=== PATIENT | male | born 1955 | race Caucasian/White ===

== ENCOUNTER 2021-08-07 13:45 | Emergency (ER) | payer OTHER, SELFPAY ==
--- NOTE | ~2021-08-07 | XR_ITS ---
EXAMINATION: XR shoulder RT min 2V INDICATION: Right shoulder pain TECHNIQUE: Four views of the right shoulder are submitted. COMPARISON: None FINDINGS: Normal alignment. No fracture. There is moderate osteoarthritis of the glenohumeral and acr omioclavicular joints. Soft tissues are unremarkable. IMPRESSION: 1. Moderate osteoarthritis without acute osseous finding. Reviewed, dictated and finalized at location A. [employer]
[2021-08-07 14:07] VITALS: BP 185/119; PULSE 74; RESP 20; TEMP 36.8; O2SAT 97
--- NOTE | 2021-08-07 14:10 | ED.UPPEXIN ---
HPI - Extremity Injury (Upper) General Chief Complaint: Extremity Injury, Upper Stated Complaint: shoulder injury right side Time Seen by Provider: 08/07/21 14:10 Source: patient Mode of arrival: ambulatory History of Present Illness HPI narrative: 66-year-old male with no significant past medical history presents with -- right shoulder pain. Decreased range of motion of right shoulder. One of his colleagues bumped into his right shoulder 5 days ago. MD complaint: injury to: right and shoulder Onset (ago): day(s) ( Five days ago) Other Extremity Injury: Right: shoulder Handedness: right Place: work Severity: moderate Relieving factors: immobilization Exacerbating factors: movement of extremity Context: direct blow Associated symptoms: denies other symptoms Related Data Allergies Allergy/AdvReac Type Severity Reaction Status Date / Time No Known Allergies Allergy Verified 08/07/21 14:13 Review of Systems Review of Systems: All systems reviewed & are unremarkable except as noted in HPI and below Constitutional: Constitutional: Reports as per HPI and Reports no additional constitutional complaints Eyes: Eyes: Reports as per HPI and Reports no additional eye complaints ENT: Reports system reviewed and no additional complaints, except as documented Cardiovascular: Cardiovascular: Reports as per HPI and Reports no additional cardiovascular complaints Respiratory: Respiratory: Reports as per HPI and Reports no additional respiratory complaints Gastrointestinal: Gastrointestinal: Reports as per HPI and Reports no additional gastrointestinal complaints Genitourinary: Genitourinary: Reports no additional male genitourinary complaints Musculoskeletal: Musculoskeletal: Reports other ( right shoulder pain /decreased range motion) Integumentary/Breasts: Skin/Breast: Reports system reviewed and no additional complaints, except as docu Neurologic: Reports system reviewed and no additional complaints, except as documented Psychiatric: Psychiatric: Reports no additional psychiatric complaints and Reports as per HPI Endocrine: Endocrine: Reports no additional endocrine complaints and Reports as per HPI Hematologic/Lymphatic: Hematologic/Lymphatic: Reports no additional hematologic/lymphatic complaints and Reports as per HPI Allergic/Immunologic: Allergic/Immunologic: Reports no additional allergic/immunologic complaints and Reports as per HPI Exam Const: General: cooperative, healthy appearing and comfortable Other: hypertensive on presentation with a blood pressure of 185/119. HENMT: Head: normal to inspection Ears: hearing grossly normal bilaterally and external ears normal General nose exam: Normal external nose present and Normal nares present Face and sinus: normal facial exam Mouth: Yes Normal oral and palatal mucosa present Teeth and gingiva: dentition normal and gingiva normal Throat: posterior oropharynx normal Eyes: General: appearance normal, both eyes and all related structures Neck: Neck: normal visual inspection and full ROM Chest: Chest palpation & inspection: normal inspection of the chest Resp: Effort & Inspection: normal respiratory effort Auscultation: clear to auscultation bilaterally Cardio: Jugular venous distension: no JVD GI: Inspection: normal to inspection : General: Yes bimanual renal exam normal bilaterally and Yes no CVA tenderness Back/Spine/Pelvis: Back: no CVA tenderness Skin: General skin exam: normal color and no rashes or lesions noted Neuro: General: oriented to person, oriented to place, oriented to time, patient oriented x3 and gait normal Cranial nerves: Yes CN's II-XII intact bilaterally Speech: normal speech Sensory Exam: normal sensation Extrem: General: normal to inspection and full ROM Right upper extremity: normal to inspection and full ROM ( decreased ROM right shoulder. Tenderness right shoulder) Right lower extremity: normal to inspection Left lower extr
[2021-08-07] MEDS: KETOROLAC 30 MG/ML VIAL (*BKC) IM (14:27)
[2021-08-07] MEDS: HYDROcodone/acetaminophen (*CRX) 5-325 MG TABLET 1 TAB PO (14:48)
--- NOTE | 2021-08-07 15:03 | PC.NURSE ---
1500 pt had elevated b/p 198/110 pt refused b/p meds states will follow up with his doctor this week
[2021-08-07 15:04] VITALS: BP 198/110; PULSE 66; RESP 20; TEMP 36.9; O2SAT 98
== END 2021-08-07 15:08 | disposition home or self-care (01) ==
PROVIDERS: Emergency Provider Internal Medicine Critical Care Medicine
DX: M13.811 Other specified arthritis, right shoulder (principal); M25.511 Pain in right shoulder
CPT/HCPCS: 73030; 96372; 99283; A4565; A9270; J1885

== ENCOUNTER 2021-09-05 12:47 | Emergency (ER) | payer OTHER, SELFPAY ==
[2021-09-05] VITALS (18 sets, daily range): BP systolic 179–222; BP diastolic 130–143; PULSE 92–110; RESP 9–23; TEMP 37.3; O2SAT 92–99
--- NOTE | ~2021-09-05 | XR_ITS ---
EXAMINATION: XR chest 2V DATE: 09/05/2021 13:41 INDICATION: Right-sided chest pain TECHNIQUE: PA and lateral views of the chest are obtained. COMPARISON: None available FINDINGS: The lungs are free of acute opacities. There is no pleural effusion or pneumothorax. The ca rdiomediastinal silhouette is normal. There is moderate thoracic spondylosis. IMPRESSION: 1. No acute cardiopulmonary abnormality. Reviewed, dictated and finalized at location B.
--- NOTE | 2021-09-05 12:49 | ECG_ITS ---
Measurements Intervals [place] Rate: 110 P: 34 TX: 135 QRS: 147 QRSD: 140 T: 39 QT: 356 QTc: 483 Interpretive Statements SINUS TACHYCARDIA RIGHT BUNDLE BRANCH BLOCK [120+ ms QRS DURATION, UPRIGHT V1, 40+ ms S IN I/aVL/V4/V5/V6] LEFT POSTERIOR FASCICULAR BLOCK [QRS AXIS > 109, INFERIOR Q] ABNORMAL ECG NO PREVIOUS ECG AVAILABLE FOR COMPARISON Electronically Signed On 09-05-2021 16:03:10 CDT by Matias Benitez M.D.
[2021-09-05 13:13] LABS: Basophils Percent Auto 0.3 % (0.2-1.2); Eosinophils Absolute Auto 0.1 K/mm3 (0-0.3); Eosinophils Percent Auto 1.8 % (0-4.4); Hematocrit 48.1 % (42.0-52.0); Hemoglobin 16.4 g/dL (14.0-18.0); Immature Granulocyte Absolute 0.01 K/mm3 (0.00-0.031); Immature Granulocyte Percent A 0.1 % (0-0.5); Lymphocytes Absolute Auto 2.03 K/mm3 (0.9-3.2); Mean Corpuscular HGB Conc 34.1 g/dl (32-36); Mean Corpuscular Hemoglobin 33.2 pg (26-34); Mean Corpuscular Volume 97.4 fl (80-100); Mean Platelet Volume 9.5 fl (7.4-10.4); Monocytes Absolute Auto 0.7 K/mm3 (0.1-0.6); Monocytes Percent Auto 10.1 % (2.6-8.5); Neutrophils Absolute Auto 4.3 K/mm3 (1.3-6.7); Neutrophils Percent Auto 59.7 % (45.5-73.1); Platelet Count Result 280 k/mm3 (150-375); Red Blood Count 4.94 M/mm3 (4.6-6.20); Red Cell Distribution Width 13.2 % (11.5-14.5); White Blood Count 7.3 K/mm3 (4.5-10.0)
[2021-09-05 13:26] LABS: Alanine Aminotransferase 47 U/L (4-50); Albumin Level 4.7 g/dL (3.5-5.1); Alkaline Phosphatase 87 U/L (38-126); Anion Gap 7 mmol/L (8-16); Aspartate Amino Transferase 46 U/L (17-59); Bilirubin,Total 0.6 mg/dL (0.2-1.3); Blood Urea Nitrogen 13 mg/dL (9-20); Calcium 8.9 mg/dL (8.4-10.2); Carbon Dioxide 24 mmol/L (22-30); Chloride 104 mmol/L (98-107); Estimated CRCL calculation 75 ml/min; Estimated Glomerular Filt Rate > 60; Glucose 117 mg/dL (65-110); Lipase 93 U/L (23-300); Sodium 135 mmol/L (137-145)
[2021-09-05 13:27] LABS: Partial Thromboplastin Time 25.8 SECONDS (22.3-36.8)
[2021-09-05 13:37] LABS: Troponin I < 0.012 ng/mL (0.000-0.034)
--- NOTE | 2021-09-05 14:25 | PC.NURSE ---
ERP advised of high blood pressure readings.
--- NOTE | 2021-09-05 14:39 | ED.GENADULT ---
HPI - General Adult General Chief complaint: Chest Pain Stated complaint: chest pain Time Seen by Provider: 09/05/21 13:25 History of Present Illness HPI narrative: Patient is a 66-year-old male who presents ER for evaluation of his hypertension. Patient reports he was seen in [place] ER recently after suffering a shoulder injury after helping a woman curb and then she slipped on the ice. He has been doing well since then however was found his blood pressure was markedly elevated. His family has been anxious and trying to make sure he is okay. He has a appointment scheduled on 09/09/2021 with his PCP in [place]. Reports he has not been on antihypertensives with the exception many years ago when he had an upset stomach and stopped taking them. He is unsure what the name of them well. Patient endorses some shortness of breath when he walks upstairs to help his mother but otherwise has no chest pain, neurologic symptoms, or other complaint. Related Data Allergies Allergy/AdvReac Type Severity Reaction Status Date / Time No Known Allergies Allergy Verified 09/05/21 13:00 Review of Systems Review of Systems: All systems reviewed & are unremarkable except as noted in HPI and below Constitutional: Constitutional: Denies chills, Denies fever(s) and Denies weakness Eyes: Eyes: Denies change in vision ENT: Denies nasal congestion and Denies sore throat Cardiovascular: Cardiovascular: Denies chest pain, Denies rapid heart rate and Denies radiating jaw, neck or arm pain Respiratory: Respiratory: Denies cough, Reports dyspnea (When walking up stairs.) and Denies wheezing Musculoskeletal: Musculoskeletal: Denies back pain and Denies arthralgias Neurologic: Denies headache(s), Denies focal weakness and Denies numbness PMFSH Past Medical History Medical History (Updated 09/05/21 @ 14:47 by Evans Lofton MD) Hypertension Surgical History Surgical History (Updated 09/05/21 @ 14:47 by Evans Lofton MD) No pertinent past surgical history Social History Social History (Updated 09/05/21 @ 14:47 by Evans Lofton MD) Smoking status: Smoker, status unknown Exam Narrative: GENERAL: Well-appearing, well-nourished, and in no acute distress. HEAD: Normocephalic, atraumatic. EYES: PERRL and EOMI. CHEST: Clear to auscultation. No respiratory distress. HEART: Regular rate and rhythm. Normal peripheral pulses. ABDOMEN: Soft, nontender, nondistended. EXTREMITIES: Normal range of motion. No edema. SKIN: Warm, dry, no rash. NEURO: Alert and oriented x3. PSYCH: Normal mood and affect. Course Course Emergency Course: Discussed case with physician assistant teacher primary Maddy patient's primary care office. Patient has not been seen there previously and had one canceled appointment but they are anticipating him for the which she has a schedule appointment for. They would like him started on atenolol 50 mg. We will give 1 week supply and then may adjust from there. Patient is aware of treatment plan. 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 Vital Signs Vital signs: Vital Signs Temperature 99.1 F 09/05/21 12:54 Pulse Rate 107 H 09/05/21 12:54 Respiratory Rate 23 H 09/05/21 12:54 Blood Pressure 220/143 H 09/05/21 12:54 Pulse Oximetry 98 09/05/21 12:54 Temperature 99.1 F 09/05/21 12:54 Pulse Rate 110 H 09/05/21 12:58 Respiratory Rate 23 H 09/05/21 12:54 Blood Pressure 220/143 H 09/05/21 12:54 Pulse Oximetry 98 09/05/21 12:54 Medical Decision Making Vital Signs Vital Signs: Vital Signs Temperature 99.1 F 09/05/21 12:54 Pulse Rate 107 H 09/05/21 12:54 Respiratory Rate 23 H 09/05/21 12:54 Blood Pressure 220/143 H 09/05/21 12:54 Pulse Oximetry 98 09/05/21 12:54 Temperature 99.1 F 09/05/21 12:54 Pulse Rate 110 H 09/05/21 12:58 Respiratory Rate 23 H 09/05/21 12:54 Blood Pres
== END 2021-09-05 15:05 | disposition home or self-care (01) ==
PROVIDERS: Emergency Provider Emergency Medicine; PCP Physician Assistant
DX: I10 Essential (primary) hypertension (principal); R00.0 Tachycardia, unspecified; I45.10 Unspecified right bundle-branch block
CPT/HCPCS: 36415; 71046; 80053; 83690; 84484; 85025; 85610; 85730; 93005; 99284

== ENCOUNTER 2021-09-23 11:40 | Emergency (ER) | payer OTHER, SELFPAY ==
[2021-09-23 11:58] VITALS: BP 167/123; PULSE 71; RESP 16; TEMP 36.3; O2SAT 100
[2021-09-23 12:46] LABS: Basophils Absolute Auto 0.02 K/mm3 (0.00-0.10); Basophils Percent Auto 0.3 % (0.0-1.0); Eosinophils Absolute Auto 0.16 K/mm3 (0.02-0.50); Eosinophils Percent Auto 2.5 % (1.0-6.0); Hematocrit 45.8 % (40.0-54.0); Immature Granulocyte Absolute 0.02 K/mm3 (0.00-0.00); Immature Granulocyte Percent A 0.3 % (0.0-0.0); Lymphocytes Absolute Auto 2.17 K/mm3 (1.10-4.50); Lymphocytes Percent Auto 33.4 % (18.0-42.0); Mean Corpuscular HGB Conc 32.8 g/dL (32.0-36.0); Mean Corpuscular Hemoglobin 32.8 pg (27.0-31.0); Mean Platelet Volume 9.9 fl (8.7-11.0); Monocytes Absolute Auto 0.72 K/mm3 (0.10-0.90); Monocytes Percent Auto 11.1 % (2.0-11.0); Neutrophils Absolute Auto 3.4 K/mm3 (1.7-7.2); Neutrophils Percent Auto 52.4 % (50.0-70.0); Platelet Count Result 247 K/mm3 (150-420); Red Blood Count 4.58 M/mm3 (4.70-6.10); Red Cell Distribution Width 13.5 % (11.6-14.4); White Blood Count 6.5 K/mm3 (4.8-10.8)
[2021-09-23] MEDS: cloNIDine HCL 0.2 MG TABLET PO (12:50)
[2021-09-23 13:01] LABS: Alanine Aminotransferase 49 U/L (16-63); Alkaline Phosphatase 67 U/L (46-116); Anion Gap 8 mmol/L (8-16); Aspartate Amino Transferase 35 U/L (15-37); Bilirubin,Total 0.5 mg/dL (0.00-1.00); Blood Urea Nitrogen 13 mg/dL (7-18); Calcium 8.7 mg/dL (8.5-10.1); Carbon Dioxide 27 mmol/L (21-32); Chloride 101 mmol/L (98-108); Estimated Glomerular Filt Rate > 60; Glucose 98 mg/dL (70-99); Osmolality Calculated 282 mOsm/kg (285-295); Potassium 4.2 mmol/L (3.5-5.1); Sodium 136 mmol/L (136-145); Total Protein 7.9 g/dL (6.4-8.2)
--- NOTE | 2021-09-23 13:29 | ED.GENADULT ---
HPI - General Adult General Chief complaint: Unspecified Stated complaint: HIGH BLOOD PRESSURE Time Seen by Provider: 09/23/21 11:42 Source: patient, family, RN notes reviewed and old records reviewed Mode of arrival: ambulatory Limitations: no limitations History of Present Illness complaint: elevated BP, asymptomatic. Onset (ago): day(s) (1) Pain Consistency: other (pain-free) Relieving factors: medication Exacerbating factors: none Treatments prior to arrival: none Related Data Home Medications Medication Instructions Recorded Confirmed lisinopril 20 mg PO DAILY 09/23/21 09/23/21 Allergies Allergy/AdvReac Type Severity Reaction Status Date / Time No Known Allergies Allergy Verified 09/23/21 12:09 Review of Systems Review of Systems: All systems reviewed & are unremarkable except as noted in HPI and below PMFSH Past Medical History Medical History (Updated 09/23/21 @ 13:47 by Arabella Glover MD) Hypertension Hypertension Surgical History Surgical History (Updated 09/05/21 @ 14:47 by Evans Lofton MD) No pertinent past surgical history Social History Social History (Updated 09/05/21 @ 14:47 by Evans Lofton MD) Smoking status: Smoker, status unknown Exam Const: General: cooperative, healthy appearing and no acute distress Nutritional Appearance: well nourished Orientation/consciousness: oriented to person and patient oriented x3 Limitations: no limitations HENMT: Head: normal to inspection, normocephalic and atraumatic Ears: hearing grossly normal bilaterally, external ears normal and EAC's normal General nose exam: Normal external nose present and Normal nares present Face and sinus: normal facial exam Mouth: Yes Normal oral and palatal mucosa present, Yes lip normal, Yes oropharynx normal and Yes moist mucous membranes Throat: posterior oropharynx normal Eyes: General: appearance normal, both eyes and all related structures Eyelids: eyelids normal Conjunctivae: conjunctivae normal Sclera: sclerae normal Cornea: corneas normal Pupils: Equal, round and reactive pupils present EOM: EOMs intact bilaterally Neck: Neck: normal visual inspection and full ROM Chest: Chest palpation & inspection: normal inspection of the chest Resp: Effort & Inspection: normal respiratory effort and able to speak in complete sentences Auscultation: clear to auscultation bilaterally Cardio: Jugular venous distension: no JVD Rate: regular rate Rhythm: regular rhythm Peripheral pulses: Peripheral pulses 2+ throughout GI: GI Palp: No abdominal tenderness Auscultation: normal bowel sounds : General: Yes bladder normal to inspection and Yes no CVA tenderness Back/Spine/Pelvis: Back: no CVA tenderness Cervical Spine: cervical ROM normal Thoracic/Lumbar Spine: thoraco-lumbar ROM normal Skin: General skin exam: normal color Neuro: General: patient oriented x3 and moves all extremities Cranial nerves: Yes CN's II-XII intact bilaterally, Yes Equal, round and reactive pupils present, Yes Normal accommodation reflex present and Yes Bilaterally intact EOM present Cognition (Neuro): normal cognition Speech: normal speech Gait exam (Neuro): Normal gait present Motor exam (neuro): 5/5 motor strength present throughout Extrem: General: normal to inspection, full ROM, capillary refill normal, no pedal edema, no calf tenderness and normal gait Psych: Appearance: grossly normal and well kempt Mental Status: mental status grossly normal Affect: normal affect Attitude: cooperative Thought process: Normal thought process present Thought content: Yes Normal thought content present Insight: Good insight present (Psych) Judgement: Good judgement present (Psych) Course Course Emergency Course: pt was stable in the ED, with moderated BP Reevaluation(s) Reevaluation #1: VSS Date: 09/23/21 Time: 12:31 Vital Signs Vital signs: Vital Signs Temperature 36.3 C L 09/23/21 11:58 Pulse Rate
[2021-09-23 13:38] VITALS: BP 157/101; PULSE 61; RESP 16; TEMP 36.4; O2SAT 97
== END 2021-09-23 13:41 | disposition home or self-care (01) ==
PROVIDERS: Emergency Provider Emergency Medicine; PCP Physician Assistant
DX: I10 Essential (primary) hypertension (principal)
CPT/HCPCS: 36415; 80053; 85025; 99283; A9270

== ENCOUNTER 2023-01-01 01:56 | Emergency (ER) | payer OTHER, SELFPAY ==
[2023-01-01] VITALS (32 sets, daily range): BP systolic 132–176; BP diastolic 93–127; PULSE 71–95; RESP 14–20; TEMP 36.7–36.8; O2SAT 95–99
--- NOTE | ~2023-01-01 | XR_ITS ---
Portable chest x-ray Comparison: 09/05/2021 Clinical History: Hypertension Findings: Lungs are clear, without focal consolidation or pleural effusion. Prominent contour of the aortic arch. The heart itself is not enlarged. Bones and soft tissues are unremarkable. Impression: Prominent contour of the aortic arch. This may be due to ectasia and AP technique, but aortic aneurys m cannot be completely excluded. Consider CT to further evaluate for aneurysm, as indicated. Clear lungs. Reviewed, dictated and finalized at location M. Impression: Prominent contour of the aortic arch. This may be due to ectasia and AP techniq ue, but aortic aneurysm cannot be completely excluded. Consider CT to further e valuate for aneurysm, as indicated. Clear lungs.
--- NOTE | 2023-01-01 02:01 | ED.PSYCH ---
HPI - Psych General Chief Complaint: Unspecified Stated Complaint: HIGH BP Time Seen by Provider: 01/01/23 01:59 Source: patient and EMS Mode of arrival: ambulatory Limitations: no limitations History of Present Illness HPI Narrative: 67-year-old male, smoker, polysubstance abuse( marijuana and methamphetamine), Alcohol use,hypertension with noncompliance was noted to have -- Visual hallucinations following which the police Department was informed who in turn sent EMS to his house. -- Noted to have elevated blood pressures of 212/150 with a heart rate of 107 -- patient refuse treatment but was advised by [facility] to present to the ER for evaluation and treatment. patient denies any chest pain or shortness of breath. no focal neuro deficits. patient denies suicidal or homicidal ideation MD complaint: altered mental status Onset (ago): hour(s) ( symptoms started 2 hours ago) Duration: resolved prior to arrival History of same: No Context: recent alcohol abuse and recent drug abuse Associated psychiatric symptoms: visual hallucinations Associated symptoms: denies other symptoms Treatments prior to arrival: none Related Data Allergies Allergy/AdvReac Type Severity Reaction Status Date / Time No Known Allergies Allergy Verified 01/01/23 02:50 Review of Systems Review of Systems: All systems reviewed & are unremarkable except as noted in HPI and below Constitutional: Constitutional: Reports as per HPI and Reports no additional constitutional complaints Eyes: Eyes: Reports as per HPI and Reports no additional eye complaints ENT: Reports system reviewed and no additional complaints, except as documented and Reports as per HPI Cardiovascular: Cardiovascular: Reports as per HPI and Reports no additional cardiovascular complaints Respiratory: Respiratory: Reports as per HPI and Reports no additional respiratory complaints Gastrointestinal: Gastrointestinal: Reports as per HPI and Reports no additional gastrointestinal complaints Genitourinary: Genitourinary: Reports no additional male genitourinary complaints and Reports as per HPI Musculoskeletal: Musculoskeletal: Reports no additional musculoskeletal complaints and Reports as per HPI Integumentary/Breasts: Skin/Breast: Reports system reviewed and no additional complaints, except as docu and Reports as per HPI Neurologic: Reports system reviewed and no additional complaints, except as documented and Reports as per HPI Psychiatric: Psychiatric: Reports no additional psychiatric complaints and Reports as per HPI Comments: visual hallucinations currently the patient is alert and oriented. Endocrine: Endocrine: Reports no additional endocrine complaints and Reports as per HPI Hematologic/Lymphatic: Hematologic/Lymphatic: Reports no additional hematologic/lymphatic complaints and Reports as per HPI Allergic/Immunologic: Allergic/Immunologic: Reports no additional allergic/immunologic complaints and Reports as per HPI [facility] Past Medical History Medical History (Updated 01/01/23 @ 06:08 by Ricardo Daly MD) Hypertension Hypertension Surgical History Surgical History (Updated 09/05/21 @ 14:47 by Evans Lofton MD) No pertinent past surgical history Social History Social History (Updated 01/01/23 @ 02:15 by Ricardo Daly MD) Social History: History of marijuana, amphetamine and alcohol use Smoking status: Smoker, status unknown Exam Narrative: hypertensive with a blood pressure of 176/123 Const: General: no acute distress Orientation/consciousness: patient oriented x3 Limitations: no limitations HENMT: Head: normal to inspection Ears: external ears normal Face/Nose/Sinus: Normal external nose present Face and sinus: normal facial exam Mouth: Yes Normal oral and palatal mucosa present Throat: posterior oropharynx normal Eyes: Conjunctivae: conjunctivae normal Pupils: Equal, round and reactive pupils
--- NOTE | 2023-01-01 02:08 | ECG_ITS ---
Measurements Intervals [place] Rate: 93 P: 31 MA: 138 QRS: 140 QRSD: 142 T: 47 QT: 383 QTc: 478 Interpretive Statements SINUS RHYTHM RIGHT BUNDLE BRANCH BLOCK LEFT POSTERIOR FASCICULAR BLOCK BASELINE ARTIFACT- I, II, AVR ABNORMAL ECG COMPARED TO ECG 09/05/2021 12:57:21 SINUS RHYTHM NOW PRESENT Electronically Signed On 01-01-2023 6:53:32 CDT by [place] Rodriguez D.O.
[2023-01-01 02:27] LABS: Basophils Absolute Auto 0.03 K/mm3 (0.00-0.10); Basophils Percent Auto 0.3 % (0.0-1.0); Eosinophils Absolute Auto 0.17 K/mm3 (0.02-0.50); Eosinophils Percent Auto 1.9 % (1.0-6.0); Hematocrit 47.4 % (37.0-46.0); Hemoglobin 16.1 g/dL (12.4-15.3); Immature Granulocyte Absolute 0.02 K/mm3 (0.00-0.00); Immature Granulocyte Percent A 0.2 % (0.0-0.0); Lymphocytes Absolute Auto 2.09 K/mm3 (1.10-4.50); Lymphocytes Percent Auto 23.9 % (18.0-42.0); Mean Platelet Volume 9.3 fl (8.7-11.0); Monocytes Absolute Auto 0.95 K/mm3 (0.10-0.90); Monocytes Percent Auto 10.9 % (2.0-11.0); Neutrophils Absolute Auto 5.5 K/mm3 (1.7-7.2); Neutrophils Percent Auto 62.8 % (50.0-70.0); Platelet Count Result 304 K/mm3 (150-420); Red Blood Count 4.74 M/mm3 (4.70-6.10); Red Cell Distribution Width 12.6 % (11.6-14.4); White Blood Count 8.8 K/mm3 (4.8-10.8)
[2023-01-01] MEDS: LABETALOL HCL INJ 100 MG/20 ML VIAL 20 MG IV PUSH (02:35)
[2023-01-01 02:38] LABS: Amphetamine Screen Urine Positive (Negative); Barbiturate Screen Urine Negative (Negative); Benzodiazepines Screen Urine Negative (Negative); Cannabinoid Screen Urine Positive (Negative); Cocaine Screen Urine Negative (Negative); Methadone Screen Urine Negative (Negative); Opiate Screen Urine Negative (Negative); Phencyclidine Screen Urine Negative (Negative)
[2023-01-01 02:39] LABS: Prothrombin Time 10.7 Seconds (9.50-12.10)
[2023-01-01] MEDS: THIAMINE HCL INJ 100 MG, FOLIC ACID 1 MG, MULTIVITAMINS-12 INJ 10 ML, MAGNESIUM SULFATE... 500 MG IV CONT (02:40)
[2023-01-01] MEDS: HALOPERIDOL LACTATE 5 MG/ML VIAL IM (02:45)
--- NOTE | 2023-01-01 02:45 | PC.NURSE ---
Pt calm and resting on stretcher alert to verbal stimuli. Pt oriented x 4. Pt agreeable to all medications ordered. Pt medicated as ordered. Lights dimmed and side rails up x 2 call light within reach. Pt voices no other needs at this time. Offered blanket pt declined. Pt NSR on rn cardiac no ectopy.
[2023-01-01 02:56] LABS: Acetaminophen 12 ug/mL (10-30); Alanine Aminotransferase 64 U/L (16-63); Albumin Level 3.9 g/dL (3.4-5.0); Alkaline Phosphatase 79 U/L (46-116); Anion Gap 11 mmol/L (8-16); Aspartate Amino Transferase 43 U/L (15-37); Bilirubin,Total 1.1 mg/dL (0.00-1.00); Blood Urea Nitrogen 19 mg/dL (7-18); Calcium 9.7 mg/dL (8.5-10.1); Carbon Dioxide 27 mmol/L (21-32); Chloride 97 mmol/L (98-108); Estimated CRCL calculation 52 ml/min; Estimated Glomerular Filt Rate 55; Glucose 103 mg/dL (70-99); Lipase 37 U/L (16-77); NT Pro B Type Natriuretic Pept 357 pg/mL (0-125); Osmolality Calculated 282 mOsm/kg (285-295); Potassium 4.1 mmol/L (3.5-5.1); Sodium 135 mmol/L (136-145); Total Protein 8.4 g/dL (6.4-8.2)
[2023-01-01 02:57] LABS: Ethanol < 3 mg/dL (0-6); Salicylate 3.3 mg/dL (2.8-20.0); Thyroid Stimulating Hormone 6.47 uIU/mL (0.36-3.74); Troponin I 15.1 ng/L (0.00-60.4)
[2023-01-01] MEDS: LACTATED RINGERS 1,000 ML 150 ML IV CONT (03:43)
--- NOTE | 2023-01-01 04:59 | PC.NURSE ---
Pt awakens to voices and is oriented x 4 but quickly falls back to sleep. Pt voices no new needs at this time. Call light in reach side rails up x 2.
--- NOTE | 2023-01-01 06:04 | PC.NURSE ---
Pt awakens to voice and states is ready to go home. ERP aware.
== END 2023-01-01 06:23 | disposition home or self-care (01) ==
PROVIDERS: Emergency Provider Internal Medicine Critical Care Medicine
DX: I16.0 Hypertensive urgency (principal); N17.9 Acute kidney failure, unspecified; F29 Unspecified psychosis not due to a substance or known physiological condition; R74.01 Elevation of levels of liver transaminase levels; F15.10 Other stimulant abuse, uncomplicated; F10.10 Alcohol abuse, uncomplicated; F12.10 Cannabis abuse, uncomplicated; Y90.9 Presence of alcohol in blood, level not specified
CPT/HCPCS: 36415; 71045; 80053; 80307; 83605; 83690; 83880; 84443; 84484; 85025; 85610; 93005; 96361; 96365; 96372; 96375; 99284; J1630; J3411; J3475; J7030; J7120

== ENCOUNTER 2024-05-15 12:46 | Emergency (ER) | payer OTHER, SELFPAY ==
--- NOTE | ~2024-05-15 | XR_ITS ---
EXAMINATION: XR ribs LT 2V w CXR 2V DATE: 05/15/2024 13:49 INDICATION: Left lower rib pain. Fall. TECHNIQUE: Frontal and lateral views of the chest and 2 views on 4 radiograph 6 of the left ribs were obtained. COMPARISON: Chest view 01/01/2023 FINDINGS: CHEST TWO VIEWS: A calcified left lung nodule is consistent with old granulomatous disease. No pleura l effusion or pneumothorax. The heart size is normal. LEFT RIBS: There are acute fractures of left sixth-ninth ribs. There is an old healed fracture of lef t fifth rib. IMPRESSION: 1. Acute fractures of left sixth-ninth ribs. Reviewed, dictated and finalized at location A. PRELUDE ANALYST
[2024-05-15 12:47] VITALS: BP 195/132; PULSE 103; RESP 16; TEMP 37.1; O2SAT 97
[2024-05-15 13:00] VITALS: O2SAT 95
--- NOTE | 2024-05-15 13:02 | ED.FALL ---
HPI - Fall General Chief Complaint: Fall Stated Complaint: rib/side pain Time Seen by Provider: 05/15/24 13:01 Source: patient Mode of arrival: ambulatory Limitations: no limitations History of Present Illness HPI Narrative: patient is a 68-year-old male with left-sided lower rib pain after falling yesterday. Patient slipped on the ice and landed on his left side. He was at ground level and fell onto concrete. No other injuries. No head or neck injuries. complaint: fall Onset (ago): day(s) (2) Fall from: standing Fall witnessed: yes, by bystander Place fall occurred: street Loss of consciousness: none Prolonged down time: no Symptoms prior to fall: none Context: tripped/slipped ( Ice) Location of injury: chest ( left side) and back ( left side) Severity: severe Severity scale (1-10): 8 Quality: sharp Associated symptoms (after fall): denies Related Data Allergies Allergy/AdvReac Type Severity Reaction Status Date / Time No Known Allergies Allergy Verified 01/01/23 02:50 Review of Systems Review of Systems: All systems reviewed & are unremarkable except as noted in HPI and below Constitutional: Constitutional: Reports no additional constitutional complaints Eyes: Eyes: Reports no additional eye complaints ENT: Reports system reviewed and no additional complaints, except as documented Cardiovascular: Cardiovascular: Reports no additional cardiovascular complaints Respiratory: Respiratory: Reports no additional respiratory complaints Gastrointestinal: Gastrointestinal: Reports no additional gastrointestinal complaints Genitourinary: Genitourinary: Reports no additional male genitourinary complaints Musculoskeletal: Musculoskeletal: Reports no additional musculoskeletal complaints Integumentary/Breasts: Skin/Breast: Reports system reviewed and no additional complaints, except as docu Neurologic: Reports system reviewed and no additional complaints, except as documented Psychiatric: Psychiatric: Reports no additional psychiatric complaints Endocrine: Endocrine: Reports no additional endocrine complaints Hematologic/Lymphatic: Hematologic/Lymphatic: Reports no additional hematologic/lymphatic complaints Allergic/Immunologic: Allergic/Immunologic: Reports no additional allergic/immunologic complaints PMFSH Past Medical History Medical History Hypertension Hypertension Surgical History Surgical History No pertinent past surgical history Social History Social History Social History: History of marijuana, amphetamine and alcohol use Smoking status: Smoker, status unknown Exam Const: General: healthy appearing Nutritional Appearance: well nourished Orientation/consciousness: patient oriented x3 Limitations: no limitations HENMT: Head: normal to inspection Ears: external ears normal Face/Nose/Sinus: Normal external nose present Eyes: Conjunctivae: conjunctivae normal Pupils: Equal, round and reactive pupils present EOM: EOMs intact bilaterally Neck: Neck: normal visual inspection Chest: Chest palpation & inspection: normal inspection of the chest Other: tender left lower mid axillary rib region to palpation Resp: Effort & Inspection: normal respiratory effort and not labored Auscultation: clear to auscultation bilaterally and no crackles Cardio: Rate: regular rate Rhythm: regular rhythm Heart sounds: no murmurs GI: Inspection: non-distended GI Palp: Yes Soft to palpation and No Tenderness to palpation present (GI) Auscultation: normal bowel sounds : General: Yes bladder normal to palpation Back/Spine/Pelvis: Back: no CVA tenderness Skin: General skin exam: normal color Rashes: no rashes Wounds: no wounds Neuro: General: patient oriented x3 Cranial nerves: Yes Nystagmus not present Speech: normal speech Gait exam (Neuro): Normal gait present Extrem: General: normal to inspection Psych: Mental Status: mental status grossly normal Affect: normal affect Attitude: cooperative Course Vital Signs Vital signs: Vital Signs Temperature 37.1 C 05/15/24 12:47 Pulse Rate 103 H 05/15/24 12:47 Respiratory Rate 16 05/15/24 12:47 Blood Pressure 195/132 H 05/15/24 12:47 Pulse Oximetry 97 05/15/24 12:47 Oxygen Delivery Room Air 05/15/24 12:47 Temperature 36.9 C 05/15/24 14:09 Pulse Rate 84 05/15/24 14:09 Respiratory Rate 18 05/15/24 14:09 Blood Pressure 199/133 H 05/15/24 14:59 Pulse Oximetry 95 05/15/24 14:09 Oxygen Delivery Room Air 05/15/24 14:09 MDM - Fall MDM Narrative Medical decision making narrative: patient is a 68-year-old male with left-sided rib pain after a fall. We will get chest x-ray with ribs on the left. We will give him pain management. We will treat blood pressure. Patient noncompliant with blood pressure medicine. Imaging Data Attestation: I personally reviewed and interpreted this imaging study as follows: Radiologist's impression: Chest x-ray with ribs shows IMPRESSION: 1. Acute fractures of left sixth-ninth ribs Discharge Plan Discharge Clinical Impression: Closed rib fracture Qualifiers: Encounter type: initial encounter Rib fracture type: multiple ribs Laterality: left Qualified Code(s): S22.42XA - Multiple fractures of ribs, left side, initial encounter for closed fracture Fall Qualifiers: Encounter type: initial encounter Qualified Code(s): W19.XXXA - Unspecified fall, initial encounter Hypertension Qualifiers: Hypertension type: primary hypertension Qualified Code(s): I10 - Essential (primary) hypertension Patient Disposition: Home, Self-Care Condition: Stable Instructions: Antibiotic Form, Rib Fracture (ED) Additional Instructions: please follow-up with the primary doctor in the next week. The blood pressure medicine that you take causes cough (Lisinopril). Discuss this with your primary doctor to change it to a new medication. We have started a new medication at this time for your blood pressure until you see the primary doctor. Prescriptions: New hydrocodone-acetaminophen 10-325 mg tablet 1 tablet PO Q8H PRN (Reason: pain) Qty: 30 0RF losartan 100 mg tablet 100 mg PO DAILY Qty: 30 0RF No Action atenolol 50 mg tablet 50 mg PO DAILY Qty: 90 0RF lisinopril 20 mg tablet 20 mg PO DAILY Qty: 90 0RF Follow-up/Referrals: UNKNOWN,DOCTOR [Non-Staff] - Time of Disposition: 14:07
[2024-05-15] MEDS: ORPHENADRINE CITRATE 30 MG/ML 2 ML VIAL 60 MG IM (13:21)
[2024-05-15] MEDS: KETOROLAC (*BKC) 60 MG/2 ML VIAL IM (13:21)
[2024-05-15 14:09] VITALS: BP 235/105; PULSE 84; RESP 18; TEMP 36.9; O2SAT 95
[2024-05-15] MEDS: LOSARTAN POTASSIUM 50 MG TABLET PO ×2 (14:31→15:12)
[2024-05-15 14:59] VITALS: BP 199/133
[2024-05-15 15:16] VITALS: BP 195/105; PULSE 75; RESP 16; TEMP 37; O2SAT 96
== END 2024-05-15 15:16 | disposition home or self-care (01) ==
PROVIDERS: Emergency Provider Emergency Medicine; PCP Physician Assistant
DX: S22.42XA Multiple fractures of ribs, left side, initial encounter for closed fracture (principal); I10 Essential (primary) hypertension; W00.0XXA Fall on same level due to ice and snow, initial encounter; Y92.410 Unspecified street and highway as the place of occurrence of the external cause
CPT/HCPCS: 71046; 71100; 96372; 99284; A9270; J1885; J2360

== ENCOUNTER 2025-06-03 20:11 | Observation (INO) | payer OTHER, SELFPAY ==
[2025-06-03] VITALS (30 sets, daily range): BP systolic 165–207; BP diastolic 95–158; PULSE 71–105; RESP 11–23; TEMP 36.4; O2SAT 98–100
--- NOTE | 2025-06-03 20:21 | ECG_ITS ---
Test Date: 2025-06-03 20:39:14 Measurements Intervals [place] Rate: 67 P: 49 NE: 139 QRS: 102 QRSD: 141 T: 69 QT: 436 QTc: 463 Interpretive Statements SINUS RHYTHM RIGHT AXIS DEVIATION RIGHT BUNDLE BRANCH BLOCK BASELINE ARTIFACT- I, II, AVR, AVL, AVF, V3-V5 ABNORMAL ECG No previous ECG available for comparison Electronically Signed On 06-04-2025 08:39:20 TANYARD WORKER by [place] Rodriguez D.O.
--- NOTE | 2025-06-03 20:35 | ED_ITS ---
HPI - Nausea/Vomiting/Diarrhea General Chief complaint: Nausea/Vomiting/Diarrhea Stated complaint: n/v/d Time Seen by Provider: 06/03/25 20:19 Source: patient Mode of arrival: ambulatory Limitations: no limitations History of Present Illness HPI Narrative: Patient is a 69-year-old male with currently no running water or power in his place since March here with diarrhea. He called EMS due to the diarrhea. No nausea or vomiting. No chest pain or shortness of breath. He has been having diarrhea for the past 3 weeks. Patient also has elevated blood pressure is a concern as he stopped his medicine about a month ago. He also had many other miscellaneous complaints that were chronic in nature. MD elicited complaint: diarrhea Pertinent past history: other (Hypertension) Onset (ago): week(s) (Three) Description of vomiting: none Description of diarrhea: watery and lose Associated nausea: No Associated abdominal pain: No Location of pain: none Radiation: does not radiate Pain consistency: other (None) Pain scale (0-10): 0 Quality: other (No pain) Exacerbating factors: none Relieving factors: none Context: other (Patient has been having diarrhea for the past 3 weeks but appears to have come to the ER for no running water or electricity since March) Associated symptoms: denies other symptoms Treatment prior to arrival: none Related Data Allergies Allergy/AdvReac Type Severity Reaction Status Date / Time No Known Allergies Allergy Verified 06/03/25 22:46 Review of Systems 2 Review of Systems: All systems reviewed & are unremarkable except as noted in HPI and below Constitutional: Constitutional: Reports no additional constitutional complaints Eyes: Eyes: Reports no additional eye complaints ENT: Reports system reviewed and no additional complaints, except as documented Cardiovascular: Cardiovascular: Reports no additional cardiovascular complaints Respiratory: Respiratory: Reports no additional respiratory complaints Gastrointestinal: Gastrointestinal: Reports no additional gastrointestinal complaints Genitourinary: Genitourinary: Reports no additional male genitourinary complaints Musculoskeletal: Musculoskeletal: Reports no additional musculoskeletal complaints Integumentary/Breasts: Skin/Breast: Reports system reviewed and no additional complaints, except as docu Neurologic: Reports system reviewed and no additional complaints, except as documented Psychiatric: Psychiatric: Reports no additional psychiatric complaints Endocrine: Endocrine: Reports no additional endocrine complaints Hematologic/Lymphatic: Hematologic/Lymphatic: Reports no additional hematologic/lymphatic complaints Allergic/Immunologic: Allergic/Immunologic: Reports no additional allergic/immunologic complaints PMFSH Past Medical History Medical History Hypertension Hypertension Surgical History Surgical History No pertinent past surgical history Social History Social History Social History: History of marijuana, amphetamine and alcohol use Smoking status: Smoker, status unknown Exam 2 Const: General: healthy appearing Nutritional Appearance: well nourished Orientation/consciousness: patient oriented x3 Limitations: no limitations Other: Patient is disheveled appearance HENMT: Head: normal to inspection Ears: external ears normal F johan/Nose/Sinus: Normal external nose present Eyes: Conjunctivae: conjunctivae normal Cornea: corneas normal Pupils: E qual, round and reactive pupils present Neck: Neck: normal visual inspection Chest: Chest palpation & inspection: normal inspection of the chest Resp: Effort & Inspection: normal respiratory effort and not labored A uscultation: clear to auscultation bilaterally and no crackles Cardio: Rate: regular rate Rhythm: regular rhythm Heart sounds: no murmurs GI: Inspection: non-distended GI Palp: Yes Soft to palpation and No Tenderness to palpation present (GI) Auscultation: normal bowel sounds : General: Yes bladder normal to palpation Back/Spine/Pelvis: Back: no CVA tenderness Skin: General skin exam: normal color Rashes: no rashes Wounds: no wounds Neuro: General: patient oriented x3, moves all extremities and no meningeal signs Extrem: General: normal to inspection and no clubbing, cyanosis or edema Psych: Mental Status: mental status grossly normal Affect: normal affect Attitude: cooperative Course Vital Signs Vital signs: Vital Signs Temperature 36.4 C 06/03/25 20:14 Pulse Rate 76 06/03/25 20:14 Respiratory Rate 14 06/03/25 20:14 Blood Pressure 191/114 H 06/03/25 20:14 Pulse Oximetry 100 06/03/25 20:14 Oxygen Delivery Room Air 06/03/25 20:14 Temperature 36.4 C 06/03/25 20:14 Pulse Rate 76 06/03/25 20:14 Respiratory Rate 14 06/03/25 20:14 Blood Pressure 191/114 H 06/03/25 20:14 Pulse Oximetry 100 06/03/25 20:14 Oxygen Delivery Room Air 06/03/25 20:14 [facility] Narrative Medical decision making narrative: Patient is a 69-year-old male with diarrhea for the past 3 weeks and associated not having running water or power in his apartment. He said he is eating at this time. General medical workup. He said he has diarrhea mostly but no diarrhea in the emergency room the entire visit. Stool occult negative. All in all it appears the patient set up his disease process to be admitted for social work manager. First I will admit him for blood pressure control and then 2nd the doctor can work on social science instructor on Thursday. His blood pressure is elevated and he is off his medicine. We have treated that in the emergency room and will continue to treat as an admission with the hospitalist. We will admit the patient this evening until the hospitalist about the patient in the morning for rounding. Differential Diagnosis Differential Diagnosis: Hypertensive urgency, social visit, sepsis, colitis Lab Data [facility] Lab Attestation statement: I personally reviewed the patient's lab results. 06/03/25 21:19 06/03/25 21:19 Labs: Lab Results 06/03/25 06/03/25 06/03/25 Range/Units 20:52 20:55 21:19 WBC 6.5 (4.8-10.8) K/mm3 RBC 4.77 (4.70-6.10) M/mm3 Hgb 15.3 (12.4-15.3) g/dL Hct 46.9 H (37.0-46.0) % MCV 98.3 (78.0-102.0) fL MCH 32.1 H (27.0-31.0) pg MCHC 32.6 (32-36) g/dL RDW 13.2 (11.6-14.4) % Plt Count 265 (150-420) K/mm3 MPV 10.0 (8.7-11.0) fl Immature Gran % (Auto) 0.3 H (0.0-0.0) % Neut % (Auto) 62.9 (50.0-70.0) % Lymph % (Auto) 23.9 (18.0-42.0) % [place] % (Auto) 11.5 H (2.0-11.0) % Eos % (Auto) 0.8 L (1.0-6.0) % Baso % (Auto) 0.6 (0.0-1.0) % Lymph # (Auto) 1.56 (1.10-4.50) K/mm3 [place] # (Auto) 0.75 (0.10-0.90) K/mm3 Eos # (Auto) 0.05 (0.02-0.50) K/mm3 Baso # (Auto) 0.04 (0.00-0.10) K/mm3 Abs Immat Gran (auto) 0.02 H (0.00-0.00) K/mm3 Absolute Neuts (auto) 4.10 (1.70-7.20) K/mm3 Absolute Nucleated RBC 0.00 (0.00-0.00) K/mm3 Nucleated RBC % 0.0 (0-0.0) % Sodium 141 (137-145) mmol/L Potassium 3.9 (3.4-5.0) mmol/L Chloride 104 (98-107) mmol/L Carbon Dioxide 28 (22-30) mmol/L Anion Gap 9 (4-12) mmol/L BUN 26 H D (9-20) mg/dL Creatinine 1.01 (0.7-1.3) mg/dL Estim Creat Clear Calc 65 ml/min Estimated GFR > 60 (59 - ) Glucose 84 (65-110) mg/dL Calculated Osmolality 295 (285-295) mOsm/kg Lactic Acid 1.2 (0.7-2.0) mmol/L Calcium 9.2 (8.4-10.2) mg/dL Magnesium 2.2 (1.6-2.3) mg/dL Total Bilirubin 0.5 (0.2-1.3) mg/dL AST 86 H (17-59) U/L ALT 81 H (6-50) U/L Alkaline Phosphatase 70 (38-126) U/L Troponin I 0.016 (0.000-0.034) ng/mL Total Protein 8.5 H (6.3-8.2) g/dL Albumin 4.5 (3.5-5.1) g/dL Urine Color Light yellow (Yellow) Urine Appearance Clear (Clear) Urine pH 7.0 (5.0-8.0) Ur Specific [place] 1.015 (1.010-1.020) Urine Protein Negative (Negative) Urine Glucose (UA) Negative (Negative) Urine Ketones Negative (Negative) Ur Blood (Man) Negative (Negative) Urine Nitrate Negative (Negative) Urine Bilirubin Negative (Negative) Urine Urobilinogen 0.2 (0.2-1.0) mg/dL Leukocyte Esterase Rfl Negative (Negative) TONY/UL C. trachomatis (PCR) Pending N. gonorrhoeae (PCR) Pending ECG Data EKG #1: Attestation: I personally reviewed and interpreted this ECG as follows: ECG completion date: 06/03/25 ECG completion time: 21:57 normal rate, sinus rhythm, no ectopy, non-specific ST changes, normal QRS, normal QT and right axis Critical Care Time Critical Care Time Critical Care Time: Yes Indication: 30 Initial evaluation, discuss w/ involved parties, attempting to gather old records: N/A Documenting medical record: N/A Review of results (EKG's, labs, imaging): N/A Serial repeat bedside evaluation: N/A Discussing case with multiple memebers of the care team and consultants: N/A Total Critical Care Time: 0 Discharge Plan Discharge Clinical Impression: Accelerated essential hypertension Clinical Impression: (Ruled Out): Clostridium difficile infection Patient Disposition: Acute Care Hospital [facility] Condition: Stable Patient Language: Faroese Prescriptions: No Action atenolol 50 mg tablet 50 mg PO DAILY Qty: 90 0RF lisinopril 20 mg tablet 20 mg PO DAILY Qty: 90 0RF hydrocodone-acetaminophen 10-325 mg tablet 1 tablet PO Q8H PRN (Reason: pain) Qty: 30 0RF losartan 100 mg tablet 100 mg PO DAILY Qty: 30 0RF Follow-up/Referrals: Maddy,CANDELARIO Padilla [Primary Care Provider] Time of Disposition: 01:43
[2025-06-03] MEDS: SODIUM CHLORIDE 0.9% IV 1,000 ML 999 ML IV CONT (20:49)
[2025-06-03 22:22] LABS: Hematocrit 46.9 % (37.0-46.0); Hemoglobin 15.3 g/dL (12.4-15.3); Immature Granulocyte Percent A 0.3 % (0.0-0.0); Lymphocytes Absolute Auto 1.56 K/mm3 (1.10-4.50); Mean Corpuscular HGB Conc 32.6 g/dL (32-36); Mean Corpuscular Hemoglobin 32.1 pg (27.0-31.0); Mean Corpuscular Volume 98.3 fL (78.0-102.0); Nucleated Red Blood Cells Absolute Auto 0.00 K/mm3 (0.00-0.00); Nucleated Red Blood Cells Perc 0.0 % (0-0.0); Platelet Count Result 265 K/mm3 (150-420); Red Blood Count 4.77 M/mm3 (4.70-6.10); White Blood Count 6.5 K/mm3 (4.8-10.8)
[2025-06-03 22:23] LABS: Add Urine Microscopic? NO; Appearance Urine Clear (Clear); Glucose Urine UA Negative (Negative); Leukocyte Esterase Ur Negative LEU/UL (Negative); Nitrate Urine Negative (Negative); Specific Grav Ur 1.015 (1.010-1.020)
[2025-06-03 22:27] LABS: Alanine Aminotransferase 81 U/L (6-50); Albumin Level 4.5 g/dL (3.5-5.1); Alkaline Phosphatase 70 U/L (38-126); Anion Gap 9 mmol/L (4-12); Aspartate Amino Transferase 86 U/L (17-59); Bilirubin,Total 0.5 mg/dL (0.2-1.3); Blood Urea Nitrogen 26 mg/dL (9-20); Calcium 9.2 mg/dL (8.4-10.2); Carbon Dioxide 28 mmol/L (22-30); Chloride 104 mmol/L (98-107); Estimated CRCL calculation 65 ml/min; Estimated Glomerular Filt Rate > 60; Glucose 84 mg/dL (65-110); Osmolality Calculated 295 mOsm/kg (285-295); Potassium 3.9 mmol/L (3.4-5.0); Sodium 141 mmol/L (137-145); Total Protein 8.5 g/dL (6.3-8.2)
[2025-06-03 22:44] LABS: Magnesium 2.2 mg/dL (1.6-2.3)
[2025-06-03 22:54] LABS: Troponin I 0.016 ng/mL (0.000-0.034)
[2025-06-04] VITALS (18 sets, daily range): BP systolic 158–194; BP diastolic 90–108; PULSE 75–93; RESP 15–23; TEMP 37.1–37.9; O2SAT 95–98; BMI 22.9
[2025-06-04] MEDS: DOXYCYCLINE HYCLATE 100 MG TABLET PO ×2 (01:06→08:04)
[2025-06-04] MEDS: ACETAMINOPHEN 325 MG TABLET 650 MG PO (03:20)
--- NOTE | 2025-06-04 04:47 | ADMGEN ---
This patient, Daniel Vazquez, was admitted to 2nd Floor Room 204-2. Patient/family oriented to hospital policies and general routines including ID bracelet, bed and alarms, pain management, procedures, bathroom and other care routines, personal items, smoking policy, room service/diet, and visiting hours. Information on how to activate the Rapid Response Team has been discussed. Patient/Family are encouraged to report perceived risks to care and to ask questions if they do not understand what they are told or what they should do.
--- NOTE | 2025-06-04 06:50 | PC.NURSE ---
Spoke with Jes, ED RN, patient on PO ABT d/t possible STI, awaiting lab results for definitive diagnosis.
[2025-06-04 07:19] LABS: Hematocrit 40.6 % (37.0-46.0); Hemoglobin 13.2 g/dL (12.4-15.3); Immature Granulocyte Percent A 0.5 % (0.0-0.0); Lymphocytes Absolute Auto 1.19 K/mm3 (1.10-4.50); Mean Corpuscular HGB Conc 32.5 g/dL (32-36); Mean Corpuscular Hemoglobin 31.9 pg (27.0-31.0); Mean Corpuscular Volume 98.1 fL (78.0-102.0); Nucleated Red Blood Cells Absolute Auto 0.00 K/mm3 (0.00-0.00); Nucleated Red Blood Cells Perc 0.0 % (0-0.0); Platelet Count Result 224 K/mm3 (150-420); Red Blood Count 4.14 M/mm3 (4.70-6.10); White Blood Count 9.5 K/mm3 (4.8-10.8)
[2025-06-04 07:33] LABS: Alanine Aminotransferase 64 U/L (6-50); Albumin Level 3.7 g/dL (3.5-5.1); Alkaline Phosphatase 57 U/L (38-126); Anion Gap 5 mmol/L (4-12); Aspartate Amino Transferase 62 U/L (17-59); Bilirubin,Total 0.9 mg/dL (0.2-1.3); Blood Urea Nitrogen 21 mg/dL (9-20); Calcium 8.5 mg/dL (8.4-10.2); Carbon Dioxide 23 mmol/L (22-30); Chloride 107 mmol/L (98-107); Estimated CRCL calculation 85 ml/min; Estimated Glomerular Filt Rate > 60; Glucose 118 mg/dL (65-110); Osmolality Calculated 284 mOsm/kg (285-295); Potassium 3.8 mmol/L (3.4-5.0); Sodium 135 mmol/L (137-145); Total Protein 7.1 g/dL (6.3-8.2)
[2025-06-04] MEDS: LOSARTAN POTASSIUM 50 MG TABLET 100 MG PO (08:04)
[2025-06-04] MEDS: ENOXAPARIN 40 MG/0.4 ML SYRINGE SUB-Q (08:04)
[2025-06-04] MEDS: AZITHROMYCIN 250 MG TABLET 1000 MG PO (09:39)
--- NOTE | 2025-06-04 09:45 | PC.NURSE ---
Unable to collect C-diff specimen d/t stools being formed, ASSEMBLING FABRICATOR aware.
[2025-06-04] MEDS: cefTRIAXone 1 GM, LIDOCAINE 1% LOCAL INJ 2.1 ML IM (09:52)
--- NOTE | 2025-06-04 10:12 | P.SS_ITS ---
Same Day Admit/Disch: HPI History of Present Illness Chief complaint: Diarrhea Narrative: Daniel Vazquez is a 69 year old male Who presented to the emergency department via EMS with complaints continuous diarrhea. Patient does report past medical history of hypertension which currently has not been medication compliant but did fill his prescriptions on 06/01/2025 reports sister is supposed to be bringing medications to him. patient also reported previous drug abuse ETOH abuse that reports last usage of ETOH was 1 week ago. would not provide last use of drug use. Patient stated he is having social determinants due to his current housing situation but did report he has been touch with [employer] for assistance. Patient denied CP, SOB, N/V, ABD pain but did endorse headache, burning with urination and generalized weakness along with his diarrhea. In the Ed: Labs unremarkable with no evidence of dehydration and electrolytes stable. However patient had a hypertensive emergency with systolic's over 200 but has not been taking his BP medications at home. STD panel was ordered and pending, UA negative for UTI. EKG SR 67. No further diarrhea since arrival to the ED occult stool negative. Patient was admitted for observation overnight for hypertensive emergency and BP control and monitoring. [facility] Past Medical History Medical History Hypertension Hypertension Surgical History Surgical History No pertinent past surgical history Family History Family History Father Asbestosis Mother Diabetes mellitus Social History Social History Social History: History of marijuana, amphetamine and alcohol use Smoking packs per day: 0.5 Smoking cigarettes per day: 10.0 Years smoked: 51 Smoking pack-years: 25.50 Smoking status: Current every day smoker Tobacco type: cigarettes Additional smoking assessment comments: Locked up for 2 years; unable to smoke then. Started smoking at 16. Alcohol intake: former Substance use: former Substance use type: marijuana and amphetamines Other substance usage details: continues to use marijuana Lack of Transportation: YES Lack of Food: Often True Current Housing: I Do Not Have Housing Concerned About Future Housing: YES Difficulty Paying Gas/Electric Bills: YES Difficulty Paying for Meds: No Currently Unemployed: No Education: Trade/Vocational Certificate Difficulty w/ Childcare or Family Care: No Spiritual care concerns: No Same Day Admit/Disch: Med Pre-admit Medications Home Medications ?Medication ?Instructions ?Recorded ?Confirmed ?Type atenolol 50 mg tablet 50 mg PO DAILY #90 tabs 12/1406/04/25 Rx lisinopril 20 mg tablet 20 mg PO DAILY #90 tabs 12/1406/04/25 Rx hydrocodone 10 mg-acetaminophen 1 tablet PO Q8H PRN pa in #30 tabs 05/15/24 06/04/25 Rx 325 mg tablet losartan 100 mg tablet 100 mg PO DAILY #30 tabs 07/0806/04/25 Rx Review of Systems Review of Systems All systems reviewed & are unremarkable except as noted in HPI and below Exam Const: General: comfortable and no acute distress Other: Pleasant male HENMT: Ears: TM's normal bilaterally Mouth: Yes moist mucous membranes Eyes: General: appearance normal, both eyes and all related structures Sclera: sclerae normal Pupils: Equal, round and reactive pupils present Resp: Effort & Inspection: normal respiratory effort Auscultation: wheezes (scant) scattered wheezes Cardio: Rate: regular rate Rhythm: regular rhythm GI: GI Palp: Yes Soft to palpation Auscultation: normal bowel sounds Skin: General skin exam: normal color and no rashes or lesions noted Wounds: no wounds Neuro: General: gait normal Speech: normal speech Motor exam (neuro): 5/5 motor strength present throughout Sensory Exam: normal sensation Extrem: General: normal to inspection Psych: Mental Status: mental status grossly normal Affect: normal affect DS: Data Data Completed and Pending Labs on day of discharge: Labs from last 24 hours 06/04/25 06/03/25 06/03/25 07:00 23:56 21:19 WBC 9.5 6.5 RBC 4.14 L 4.77 Hgb 13.2 15.3 Hct 40.6 46.9 H MCV 98.1 98.3 MCH 31.9 H 32.1 H MCHC 32.5 32.6 RDW 13.3 13.2 Plt Count 224 265 MPV 9.3 10.0 Immature Gran % (Auto) 0.5 H 0.3 H Neut % (Auto) 75.9 H 62.9 Lymph % (Auto) 12.6 L 23.9 [place] % (Auto) 10.5 11.5 H Eos % (Auto) 0.2 L 0.8 L Baso % (Auto) 0.3 0.6 Lymph # (Auto) 1.19 1.56 [place] # (Auto) 0.99 H 0.75 Eos # (Auto) 0.02 0.05 Baso # (Auto) 0.03 0.04 Abs Immat Gran (auto) 0.05 H 0.02 H Absolute Neuts (auto) 7.17 4.10 Absolute Nucleated RBC 0.00 0.00 Nucleated RBC % 0.0 0.0 Sodium 135 L 141 Potassium 3.8 3.9 Chloride 107 104 Carbon Dioxide 23 28 Anion Gap 5 9 BUN 21 H 26 H D Creatinine 0.76 1.01 Estim Creat Clear Calc 85 65 Estimated GFR > 60 > 60 Glucose 118 H 84 Calculated Osmolality 284 L 295 Lactic Acid 1.2 Calcium 8.5 9.2 Magnesium 2.2 Total Bilirubin 0.9 0.5 AST 62 H 86 H ALT 64 H 81 H Alkaline Phosphatase 57 70 Troponin I 0.016 Total Protein 7.1 8.5 H Albumin 3.7 4.5 Urine Color Urine Appearance Urine pH Ur Specific Douglas Urine Protein Urine Glucose (UA) Urine Ketones Ur Blood (Man) Urine Nitrate Urine Bilirubin Urine Urobilinogen Leukocyte Esterase Rfl Stool Occult Blood Negative C. trachomatis (PCR) N. gonorrhoeae (PCR) 06/03/25 06/03/25 20:55 20:52 WBC RBC Hgb Hct MCV MCH MCHC RDW Plt Count MPV Immature Gran % (Auto) Neut % (Auto) Lymph % (Auto) [place] % (Auto) Eos % (Auto) Baso % (Auto) Lymph # (Auto) [place] # (Auto) Eos # (Auto) Baso # (Auto) Abs Immat Gran (auto) Absolute Neuts (auto) Absolute Nucleated RBC Nucleated RBC % Sodium Potassium Chloride Carbon Dioxide Anion Gap BUN Creatinine Estim Creat Clear Calc Estimated GFR Glucose Calculated Osmolality Lactic Acid Calcium Magnesium Total Bilirubin AST ALT Alkaline Phosphatase Troponin I Total Protein Albumin Urine Color Light yellow Urine Appearance Clear Urine pH 7.0 Ur Specific Douglas 1.015 Urine Protein Negative Urine Glucose (UA) Negative Urine Ketones Negative Ur Blood (Man) Negative Urine Nitrate Negative Urine Bilirubin Negative Urine Urobilinogen 0.2 Leukocyte Esterase Rfl Negative Stool Occult Blood C. trachomatis (PCR) Pending N. gonorrhoeae (PCR) Pending DS: Summary Hospital Course Reason for hospitalization: hypertensive emergency Hospital Course: Daniel Vazquez is a 69 year old male Who presented to the emergency department via EMS with complaints continuous diarrhea. Patient does report past medical history of hypertension which currently has not been medication compliant but did fill his prescriptions on 06/01/2025 reports sister is supposed to be bringing medications to him. patient also reported previous drug abuse ETOH abuse that reports last usage of ETOH was 1 week ago, would not provide last use of drug use. Patient stated he is having social determinants due to his current housing situationpatient stated he is having social determinants due to his current housing situation but did report he has been touch with [employer] [facility] for assistance. Patient denied CP, SOB, N/V, ABD pain but did endorse headache, burning with urination and generalized weakness along with his diarrhea. In the Ed: Labs unremarkable with no evidence of dehydration and electrolytes stable. However patient had a hypertensive emergency with systolic's over 200 but has not been taking his BP medications at home. STD panel was ordered and pending, UA negative for UTI. EKG SR 67. No further diarrhea since arrival to the ED occult stool negative. Patient was admitted for observation overnight for hypertensive emergency and BP control and monitoring. Hospital Course: Patient admitted for hypertensive emergency but improved 158/90 with administration of his home medication losartan 100 mg. patient had no further episodes of diarrhea and bowel movement in the a.m. was solid. follow-up labs were unremarkable. patient with no further acute complaints but did have some social determinants at which time we provided social resources to include housing, medications, energy, and transportation. I educated patient on the need for compliance with his hypertensive medications to reduce the risk of stroke and cardiac disease. Did encourage continued cessation from alcohol any drug abuse. due to patient's burning with urination UA negative I did treat patient for STD's pending panel with 2 g Flagyl, 1 g IM Rocephin and a 1000 p.o. azithromycin. Patient was discharged home neighbor reported they could provide a ride home. Patient was ambulatory on blood pressure medications recently filled on 06/01/2025 which he reports his sister will be able to provide at discharge. Patient was discharged home Status at Discharge Functional status at discharge: independent ambulation Overall status at discharge: patient is back to baseline Time Spent with Patient Time attestation: Total time spent providing and/or coordinating discharge services: Time spent: Greater than 30 minutes DS: Admitting Diagnosis Discharge Date 06/04/2025 Admitting Diagnosis hypertensive emergency DS: Discharge Diagnosis Discharge Diagnosis (1) Hypertensive emergency: Code(s): I16.1 - Hypertensive emergency Status: Acute Discharge Plan Discharge Attending physician on discharge: Kar Marti Consulting providers: Lesley Prakash Discharging Clinician: Lesley Prakash Anticipated Discharge Date/Time: 06/04/25 10:24 Patient Disposition: Home Activity: may shower and as tolerated Diet: heart healthy Discharge Instructions: 1). Hypertension * Continue with your home blood pressure medication compliance is improtant to avoid stroke, cardiac disease, and kidney disease. 2). social determinants * Resources proved for housing, food, medication, energy resources, and transportation How can you care for yourself at home? ? Keep track of any new symptoms or changes in your symptoms. ? Rest until you feel better. ? Be safe with medicines. Take your medicines exactly as prescribed. Call your doctor if you think you are having a problem with your medicine. ? Do not drive after taking a prescription pain medicine. ? Ensure to follow-up with primary care physician as indicated and provide up dated medication list provided to you at discharge. When should you call for help? Call 911 anytime you think you may need emergency care. For example, call if: ? You passed out (lost consciousness). Call your doctor now or seek immediate medical care if: ? You have new symptoms like fever, difficulty breathing, Chest pain, vomiting, or rash. ? You have new or different pain. ? You are confused and are having trouble thinking clearly. ? Your symptoms are getting worse. Watch closely for changes in your health, and be sure to contact your doctor if: ? You do not get better as expected. Patient Instructions: Antibiotic Form, Chronic Hypertension (DC), Hypertensive Crisis (DC) Patient Language: Amharic Stand Alone Forms: General Discharge Information Follow-up/Referrals: Alfonso Borjas PA [Primary Care Provider] - 4 Weeks Discharge Medications: Continued atenolol 50 mg tablet 50 mg PO DAILY Qty: 90 0RF lisinopril 20 mg tablet 20 mg PO DAILY Qty: 90 0RF hydrocodone-acetaminophen 10-325 mg tablet 1 tablet PO Q8H PRN (Reason: pain) Qty: 30 0RF losartan 100 mg tablet 100 mg PO DAILY Qty: 30 0RF Date of admission: 06/04/25 01:49 Primary Care Provider: Alfonso Borjas Admitting Provider: Kar Marti Attending physician on admission: Kar Marti Condition: Stable Quality VTE Prophylaxis VTE prophylaxis: mechanical ordered -Patient's previous records reviewed on admission -ER notes reviewed in detail on admission -discussed all findings and current treatment plan with patient/Family/POA -Consultations reviewed for recommendations -Patient's disposition for safe discharge discussed with protective services case worker -radiology imaging, EKG and test results I have personally reviewed and interpreted unless otherwise specified Dictation performed by [facility] direct speech recognition software, therefore livestock farmworker variants and typographical errors may occur. Hospitalist MIPS Advance Care Plan I have confirmed that the patient's Advanced Care Plan is present, code status is documented, or surrogate decision maker is listed in patient medical record.: Yes Medication Reconciliation I have utilized all available resources to obtain, update and review the patients current medications (includes all prescriptions, OTC, herbals, cannabis, and nutritional supplements).: Yes The patient is not eligible for med reconciliation; the patient is in a emergent medical situation where delaying treatment would jeopardize the patients health.: No Heart Failure (Exclusion) Patient has history of Heart Transplant or Left Ventricular Assistive Device?: No IF YES, STOP HERE Heart Failure (Qualifier) Patient has current or prior documentation of LVEF less than or equal to 40%, or mod/servere depressed LVSF?: No IF NO, STOP HERE
[2025-06-04 11:26] LABS: Cannabinoid Screen Urine Positive (Negative)
--- NOTE | 2025-06-04 11:30 | PC.NURSE ---
Discharge instructions went over with patient, states understanding. Resource information given for housing, food, electricity, and transportation.
--- NOTE | 2025-06-04 11:47 | PC.NURSE ---
Call placed to sister, Farhana Morrow, aware of patient discharge, states she will pickling machine operator around [phone]
--- NOTE | 2025-06-04 13:15 | PC.NURSE ---
Transported out of facility via wc to personal vehicle
--- NOTE | 2025-06-06 09:23 | PC.NURSE ---
Unable to reach for discharge call back.
== END 2025-06-04 13:15 | disposition home or self-care (01) ==
LOC: CHSED 06-04 01:42 → CHS2ND 06-04 08:55
PROVIDERS: Nurse Practitioner Family; Admitting Provider Internal Medicine; Emergency Provider Emergency Medicine; PCP Physician Assistant; Visit Provider Internal Medicine
DX: I16.1 Hypertensive emergency (principal); I10 Essential (primary) hypertension; F17.210 Nicotine dependence, cigarettes, uncomplicated; F12.90 Cannabis use, unspecified, uncomplicated; Z59.12 Inadequate housing utilities; Z79.891 Long term (current) use of opiate analgesic
CPT/HCPCS: 36415; 80053; 80307; 81003; 82272; 83605; 83735; 84484; 85025; 87040; 87491; 87591; 93005; 96361; 96372; 96374; 99285; A9270; G0379; J1650; J2003; J7030